=== PATIENT | female | born 1990 | race Caucasian/White ===

== ENCOUNTER 2020-06-17 15:00 | Observation (INO) | payer BC ==
--- NOTE | 2020-06-17 15:02 | ERPHSYRPT ---
- History of Present Illness Historian: patient Exam Limitations: no limitations Timing/Duration: yesterday Quality: sharpness, stabbing Abdominal Pain Onset Location: periumbilical (Right side) Pain Radiation: no radiation Severity of Pain-Max: moderate Severity of Pain-Current: mild (Mild to moderate) Modifying Factors: Improves With: vomiting Associated Symptoms: nausea, vomiting Previous symptoms: no prior history Hx Tetanus, Diphtheria Vaccination/Date Given: Yes Hx Influenza Vaccination/Date Given: No Hx Pneumococcal Vaccination/Date Given: No <NITIN YANES - Last Filed: 06/17/20 16:55> <YEFRI RAO - Last Filed: 06/17/20 18:29> - History of Present Illness Time Seen by Provider: 06/17/20 15:01 Physician History: This is a 30-year-old white female who has had left ovarian procedure in the past but no other abdominal surgeries and presents with vomiting times several episodes yesterday followed by right of midline periumbilical abdominal pain that has worsened since yesterday. Patient has not vomited today. However she has nausea. Patient does have a history of endometriosis as well. Patient denies chest pain and she denies shortness of breath. She has not had any fevers. She does not have flank pain. She has had no dysuria or hematuria. (NITIN YANES) Allergies/Adverse Reactions: guaifenesin Allergy (Mild, Verified 06/17/20 15:18) Hives Penicillins Allergy (Mild, Verified 06/17/20 15:18) Hives Home Medications: No Reportable Medications [No Reported Medications] 06/17/20 [History] Travel Risk - International Travel Have you traveled outside of the country in past 3 weeks: No - Coronavirus Screening Are you exhibiting any of the following symptoms?: No Close contact with a COVID-19 positive Pt in past 14-21 Days: No - Vaccine Status Have you recieved a Covid-19 vaccination: No <NITIN YANES - Last Filed: 06/17/20 16:55> - Review of Systems Constitutional: No Symptoms Eyes: No Symptoms Ears, Nose, & Throat: No Symptoms Respiratory: No Symptoms Cardiac: No Symptoms Abdominal/Gastrointestinal: Abdominal Pain, Nausea, Vomiting Genitourinary Symptoms: No Symptoms Musculoskeletal: No Symptoms Skin: No Symptoms Neurological: No Symptoms Psychological: No Symptoms Endocrine: No Symptoms Hematologic/Lymphatic: No Symptoms <NITIN YANES - Last Filed: 06/17/20 16:55> - Past Medical History Pertinent Past Medical History: No Neurological History: No Pertinent History ENT History: No Pertinent History Cardiac History: Other Respiratory History: No Pertinent History Endocrine Medical History: No Pertinent History Musculoskeletal History: No Pertinent History GI Medical History: No Pertinent History History: No Pertinent History Psycho-Social History: No Pertinent History Female Reproductive Disorders: No Pertinent History Other Medical History: david valve prolapse - Past Surgical History Past Surgical History: No Neuro Surgical History: No Pertinent History Cardiac: No Pertinent History Respiratory: No Pertinent History Gastrointestinal: No Pertinent History Genitourinary: No Pertinent History Musculoskeletal: No Pertinent History Female Surgical History: Other - Social History Smoking Status: Current some day smoker How long have you smoked: 5 Exposure to second hand smoke: Yes Drug Use: none Patient Lives Alone: No <NITIN YANES - Last Filed: 06/17/20 16:55> - Physical Exam General Appearance: no apparent distress, alert, anxiety Eye Exam: PERRL/EOMI, eyes nml inspection Ears, Nose, Throat Exam: normal ENT inspection, moist mucous membranes Neck Exam: normal inspection, non-tender, supple, full range of motion Respiratory Exam: normal breath sounds, lungs clear, airway intact, No chest tenderness, No respiratory distress Cardiovascular Exam: regular rate/rhythm, normal heart sounds, normal peripheral pulses Gastrointestinal/Abdomen Exam: soft, normal bowel sounds, tenderness (Right of umbilicus), guarding (Plus minus), No rebound Pelvic Exam: not done Rectal Exam: not done Back Exam: normal inspection, normal range of motion, No CVA tenderness, No vertebral tenderness Extremity Exam: normal inspection, normal range of motion, pelvis stable Neurologic Exam: alert, oriented x 3, cooperative, makeup sales consultant II-XII nml as tested, normal mood/affect, nml cerebellar function, nml station & gait, sensation nml Skin Exam: normal color, warm, dry Lymphatic Exam: No adenopathy SpO2 Interpretation: normal O2 Delivery: Room Air <NITIN YANES - Last Filed: 06/17/20 16:55> - Nursing Vital Signs Nursing Vital Signs: Initial Vital Signs Temperature 98.1 F 06/17/20 15:06 Pulse Rate 104 H 06/17/20 15:06 Blood Pressure 125/84 06/17/20 15:06 O2 Sat by Pulse Oximetry 98 06/17/20 15:06 Pain Scale Pain Intensity 6 - Course Nursing assessment & vital signs reviewed: Yes <NITIN YANES - Last Filed: 06/17/20 16:55> Ordered Tests: Active Orders 24 hr Category Date Time Status IV Insertion STAT Care 06/17/20 15:53 Active ABDOMEN AND PELVIS W/0 CONTRAS [CT] Stat Exams 06/17/20 15:53 Taken AMYLASE Stat Lab 06/17/20 16:00 Completed CBC W DIFF Stat Lab 06/17/20 16:00 Completed CMP Stat Lab 06/17/20 16:00 Completed HCG,QUALITATIVE URINE Stat Lab 06/17/20 16:00 Completed LIPASE Stat Lab 06/17/20 16:00 Completed Lactic Acid Stat Lab 06/17/20 15:53 Completed UA W/RFX UR CULTURE Stat Lab 06/17/20 16:00 Completed Medication Summary Discontinued Medications Generic Name Dose Route Start Last Admin Trade Name Freq PRN Reason Stop Dose Admin Famotidine 20 mg 06/17/20 15:53 06/17/20 16:24 Pepcid 20 Mg Vial IV 06/17/20 15:54 20 mg STAT ONE Administration Famotidine Confirm 06/17/20 16:15 Pepcid 20 Mg Vial Administered 06/17/20 16:16 Dose 20 mg IV .STK-MED ONE Hydromorphone HCl 1 mg 06/17/20 15:53 06/17/20 16:26 Hydromorphone 1 Mg/Ml Injection IV 06/17/20 15:54 1 mg STAT ONE Administration Hydromorphone HCl Confirm 06/17/20 16:16 Hydromorphone 1 Mg/Ml Injection Administered 06/17/20 16:17 Dose 1 mg .ROUTE .STK-MED ONE Sodium Chloride 1,000 mls @ 999 mls/hr 06/17/20 15:53 06/17/20 17:42 Sodium Chloride 0.9% 1000 Ml IV 06/17/20 16:53 Infused .Q1H1M STA Infusion Sodium Chloride Confirm 06/17/20 16:16 Sodium Chloride 0.9% 1000 Ml Administered 06/17/20 16:17 Dose 1,000 mls @ ud .ROUTE .STK-MED ONE Ondansetron HCl 4 mg 06/17/20 15:53 06/17/20 16:20 Zofran 4 Mg/2 Ml Vial IV 06/17/20 15:54 4 mg STAT ONE Administration Ondansetron HCl Confirm 06/17/20 16:15 Zofran 4 Mg/2 Ml Vial Administered 06/17/20 16:16 Dose 4 mg .ROUTE .STK-MED ONE Lab/Rad Data: Laboratory Result Diagrams 06/17/20 16:00 06/17/20 16:00 Laboratory Results 06/17/20 06/17/20 06/17/20 Range/Units 16:00 16:00 16:00 WBC 11.6 H (4.0-10.5) K/mm3 RBC 4.91 (4.1-5.4) M/mm3 Hgb 14.4 (12.0-16.0) gm/dl Hct 42.9 (35-47) % MCV 87.4 (78-100) fl MCH 29.3 (26-32) pg MCHC 33.6 (32-36) g/dl RDW 13.3 (11.5-14.0) % Plt Count 274 (150-450) K/mm3 MPV 10.7 (7.5-11.0) fl Gran % 67.8 H (36.0-66.0) % Eos # (Auto) 0.07 (0-0.5) Absolute Lymphs (auto) 2.46 (1.0-4.6) Absolute Monos (auto) 1.21 (0.0-1.3) Lymphocytes % 21.1 L (24.0-44.0) % Monocytes % 10.4 (0.0-12.0) % Eosinophils % 0.6 (0.00-5.0) % Basophils % 0.1 (0.0-0.4) % Absolute Granulocytes 7.89 H (1.4-6.9) Basophils # 0.01 (0-0.4) Sodium 138 (137-145) mmol/L Potassium 3.6 (3.5-5.1) mmol/L Chloride 101 (98-107) mmol/L Carbon Dioxide 26 (22-30) mmol/L Anion Gap 14.9 (5-15) MEQ/L BUN 11 (7-17) mg/dL Creatinine 0.81 (0.52-1.04) mg/dL Estimated GFR > 60.0 ML/MIN Glucose 103 (74-106) mg/dL Lactic Acid (0.4-2.0) Calcium 9.3 (8.4-10.2) mg/dL Total Bilirubin 0.70 (0.2-1.3) mg/dL AST 20 (14-36) U/L ALT 17 (0-35) U/L Alkaline Phosphatase 72 (38-126) U/L Serum Total Protein 7.6 (6.3-8.2) g/dL Albumin 4.6 (3.5-5.0) g/dL Amylase 82 (30-110) U/L Lipase 48 (23-300) U/L Urine Color (YELLOW) Urine Appearance (CLEAR) Urine pH (5-6) Ur Specific [place] (1.005-1.025) Urine Protein (Negative) Urine Ketones (NEGATIVE) Urine Blood (0-5) Bharat/ul Urine Nitrite (NEGATIVE) Urine Bilirubin (NEGATIVE) Urine Urobilinogen (0-1) mg/dL Ur Leukocyte Esterase (NEGATIVE) Urine WBC (Auto) (0-5) /HPF Urine RBC (Auto) (0-2) /HPF U Epithel Cells (Auto) (FEW) /HPF Urine Bacteria (Auto) (NEGATIVE) /HPF Urine Mucus (Auto) (NEGATIVE) /HPF Urine Culture Reflexed (NO) Urine Glucose (NEGATIVE) mg/dL Urine HCG, Qual NEGATIVE (Negative) 06/17/20 06/17/20 Range/Units 16:00 15:53 WBC (4.0-10.5) K/mm3 RBC (4.1-5.4) M/mm3 Hgb (12.0-16.0) gm/dl Hct (35-47) % MCV (78-100) fl MCH (26-32) pg MCHC (32-36) g/dl RDW (11.5-14.0) % Plt Count (150-450) K/mm3 MPV (7.5-11.0) fl Gran % (36.0-66.0) % Eos # (Auto) (0-0.5) Absolute Lymphs (auto) (1.0-4.6) Absolute Monos (auto) (0.0-1.3) Lymphocytes % (24.0-44.0) % Monocytes % (0.0-12.0) % Eosinophils % (0.00-5.0) % Basophils % (0.0-0.4) % Absolute Granulocytes (1.4-6.9) Basophils # (0-0.4) Sodium (137-145) mmol/L Potassium (3.5-5.1) mmol/L Chloride (98-107) mmol/L Carbon Dioxide (22-30) mmol/L Anion Gap (5-15) MEQ/L BUN (7-17) mg/dL Creatinine (0.52-1.04) mg/dL Estimated GFR ML/MIN Glucose (74-106) mg/dL Lactic Acid 1.6 (0.4-2.0) Calcium (8.4-10.2) mg/dL Total Bilirubin (0.2-1.3) mg/dL AST (14-36) U/L ALT (0-35) U/L Alkaline Phosphatase (38-126) U/L Serum Total Protein (6.3-8.2) g/dL Albumin (3.5-5.0) g/dL Amylase (30-110) U/L Lipase (23-300) U/L Urine Color YELLOW (YELLOW) Urine Appearance CLEAR (CLEAR) Urine pH 6.0 (5-6) Ur Specific [place] 1.010 (1.005-1.025) Urine Protein NEGATIVE (Negative) Urine Ketones NEGATIVE (NEGATIVE) Urine Blood SMALL (0-5) Bharat/ul Urine Nitrite NEGATIVE (NEGATIVE) Urine Bilirubin NEGATIVE (NEGATIVE) Urine Urobilinogen NEGATIVE (0-1) mg/dL Ur Leukocyte Esterase NEGATIVE (NEGATIVE) Urine WBC (Auto) 0-2 (0-5) /HPF Urine RBC (Auto) NONE (0-2) /HPF U Epithel Cells (Auto) RARE (FEW) /HPF Urine Bacteria (Auto) RARE (NEGATIVE) /HPF Urine Mucus (Auto) SLIGHT (NEGATIVE) /HPF Urine Culture Reflexed NO (NO) Urine Glucose NEGATIVE (NEGATIVE) mg/dL Urine HCG, Qual (Negative) - Progress Progress: improved, pain not gone completely, re-examined Counseled pt/family regarding: lab results, diagnosis, need for follow-up, rad results <NITIN YANES - Last Filed: 06/17/20 16:55> <YEFRI RAO - Last Filed: 06/17/20 18:29> - Progress Progress Note: 06/17/20 16:55 I transferred care to Dr. Daryl Rao. He accepts the patient and will provide final disposition. I reviewed the patient history condition and pending laboratory and radiographic studies (NITIN YANES) 06/17/20 18:26 pt taken over at change of shift from Dr. Yanes after intro and discussion of pending labs. = RLQ now tender , no complaint of pelvic tenderness at this time or discharge. CT read as concerning for early appe - discussed with pt who wishes to stay - Dr larson and Dr. Pérez consulted and he will come in for pt to eval for appe - will admit with AB azactam since pen allergic by hx (YEFRI RAO) - Departure Departure Disposition: Home Critical Care Time: No <NITIN YANES - Last Filed: 06/17/20 16:55> - Departure Departure Disposition: In-patient Admission <YEFRI RAO - Last Filed: 06/17/20 18:29> - Departure Clinical Impression: Abdominal pain, early appendicitis suspecte Condition: Stable Referrals: DAVID GUNN [Primary Care Provider] -
[2020-06-17] MEDS ORDERED: Pepcid 20 MG VIAL IV ONE ×3 (15:53→19:22)
[2020-06-17] MEDS ORDERED: Hydromorphone 1 mg/ml Injection IV ONE (15:53)
[2020-06-17] MEDS ORDERED: Zofran 4 MG/2 ML VIAL IV ONE (15:53)
[2020-06-17] MEDS ORDERED: Sodium Chloride 0.9% 1000 ML 1,000 ML IV STA (15:53)
[2020-06-17 16:00] LABS: Absolute Neutrophil Ct (ANC) 7.89 (1.4-6.9); BASOPHIL % 0.1 % (0.0-0.4); Basophil (Absolute #) 0.01 (0-0.4); Eosinophil % 0.6 % (0.00-5.0); Eosinophil (Absolute #) 0.07 (0-0.5); Hematocrit 42.9 % (35-47); Hemoglobin 14.4 gm/dl (12.0-16.0); Lymphocyte (Absolute #) 2.46 (1.0-4.6); Lymphocytes % 21.1 % (24.0-44.0); Mean Cell Volume 87.4 fl (78-100); Mean Corpuscular Hemoglobin 29.3 pg (26-32); Mean Corpuscular Hgb Concent. 33.6 g/dl (32-36); Mean Platelet Volume 10.7 fl (7.5-11.0); Monocyte (Absolute #) 1.21 (0.0-1.3); Monocytes % 10.4 % (0.0-12.0); Neutrophil % 67.8 % (36.0-66.0); Platelet Count 274 K/mm3 (150-450); Red Blood Count 4.91 M/mm3 (4.1-5.4); Red Cell Distribution Width 13.3 % (11.5-14.0); White Blood Count 11.6 K/mm3 (4.0-10.5)
[2020-06-17 16:04] LABS: Appearance CLEAR (CLEAR); Bacteria RARE /HPF (NEGATIVE); Bilirubin NEGATIVE (NEGATIVE); Blood SMALL Ery/ul (0-5); Epithelial Cells RARE /HPF (FEW); Glucose NEGATIVE (NEGATIVE); Ketones NEGATIVE (NEGATIVE); Leukocyte Esterase NEGATIVE (NEGATIVE); Mucus SLIGHT /HPF (NEGATIVE); Nitrite NEGATIVE (NEGATIVE); Protein,Urine Dip NEGATIVE (Negative); Urobilinogen NEGATIVE mg/dL (0-1); WBC 0-2 /HPF (0-5)
[2020-06-17 16:06] LABS: ALBUMIN 4.6 g/dL (3.5-5.0); ALKALINE PHOSPHATASE 72 U/L (38-126); AMYLASE 82 U/L (30-110); ANION GAP 14.9 MEQ/L (5-15); BLOOD UREA NITROGEN 11 mg/dL (7-17); CHLORIDE 101 mmol/L (98-107); Calcium 9.3 mg/dL (8.4-10.2); Carbon Dioxide 26 mmol/L (22-30); Creatinine 1 0.81 mg/dL (0.52-1.04); EST GLOMERULAR FILTRATION RATE > 60.0 ML/MIN; Glucose 103 mg/dL (74-106); LIPASE 48 U/L (23-300); Potassium 3.6 mmol/L (3.5-5.1); SGOT/AST 20 U/L (14-36); SGPT/ALT 17 U/L (0-35); SODIUM 138 mmol/L (137-145); Total Protein 7.6 g/dL (6.3-8.2)
[2020-06-17] MEDS ORDERED: Zofran 4 MG/2 ML VIAL ONE (16:15)
[2020-06-17] MEDS ORDERED: Sodium Chloride 0.9% 1000 ML 1,000 ML ONE (16:16)
[2020-06-17] MEDS ORDERED: Hydromorphone 1 mg/ml Injection ONE (16:16)
[2020-06-17] MEDS ORDERED: Lactated Ringers 1,000 ML IV ONE ×2 (19:01→19:08)
[2020-06-17] MEDS ORDERED: Sensorcaine 0.25% 10 ML ONE (19:08)
[2020-06-17 19:20] LABS: INFLUENZA A NEGATIVE (NEGATIVE); INFLUENZA B NEGATIVE (NEGATIVE); RESPIRATORY SYNCTIAL VIRUS NEGATIVE (Negative)
[2020-06-17] MEDS ORDERED: CLINDAMYCIN-D5W 900 MG/50 ML*** 900 MG/50 ML BAG IV ONE (19:21)
[2020-06-17] MEDS ORDERED: Levofloxacin 500MG/100ML D5W 500 MG/100 ML BAG IV ONE (19:21)
[2020-06-17] MEDS ORDERED: Levofloxacin 500MG/100ML D5W 500 MG/100 ML BAG IV STA (19:22)
[2020-06-17] MEDS ORDERED: CLINDAMYCIN-D5W 900 MG/50 ML*** 900 MG/50 ML BAG IV STA (19:22)
[2020-06-17] MEDS ORDERED: SUBLIMAZE 250 MCG/5 ML ONE (19:47)
[2020-06-17] MEDS ORDERED: Quelicin Fliptop 200 MG/10 ML ONE (19:47)
[2020-06-17] MEDS ORDERED: Versed 2 MG/2 ML Injection ONE (19:47)
[2020-06-17] MEDS ORDERED: DIPRIVAN 200 MG/20 ML IV ONE (19:47)
[2020-06-17] MEDS ORDERED: Zemuron 100 MG/10 ML ONE (19:47)
[2020-06-17] MEDS ORDERED: Xylocaine-Mpf 2% 5 Ml Vial ONE (19:48)
[2020-06-17] MEDS ORDERED: BRIDION 200MG/2ML IV ONE (20:36)
--- NOTE | 2020-06-17 20:40 | XRAY ---
Indication: Abdomen pain, vomiting, and diarrhea. Multiple contiguous axial images obtained through the abdomen and pelvis without contrast. Comparison: None. Lung bases are clear. Heart is not enlarged. Stomach and bowel loops appear nonobstructed. Appendix is in the right pelvis with the distal appendix distended up to 16 mm concerning for appendicitis. No free fluid/air. Colon demonstrates radiopacities throughout presumed ingested medication/bismuth. Remaining liver, gallbladder, pancreas, spleen, adrenal glands, kidneys, ureters, bladder, uterus, and aorta appear unremarkable for noncontrast exam. Osseous structures intact. Impression: CT findings favoring acute appendicitis. No complications. Remaining CT abdomen/pelvis without contrast exam is negative. Comment: Preliminary interpretation was made by [facility]. No critical discrepancy.
[2020-06-17] MEDS ORDERED: Sodium Chloride 0.9% 1000 ML 1,000 ML IV SCH (21:40)
[2020-06-17] MEDS ORDERED: Hydromorphone 1 mg/ml Injection IV PRN ×2 (21:40→21:52)
[2020-06-17] MEDS ORDERED: VANCOMYCIN 1 GRAM/200 ML BAG 1 GM/200 ML PIGGYBACK IV SCH (21:40)
[2020-06-17] MEDS ORDERED: Zofran 4 MG/2 ML VIAL IV PRN (21:40)
[2020-06-17 21:49] LABS: Appearance CLEAR (CLEAR); Bilirubin NEGATIVE (NEGATIVE); Blood NEGATIVE Ery/ul (0-5); Glucose NEGATIVE (NEGATIVE); Ketones NEGATIVE (NEGATIVE); Leukocyte Esterase NEGATIVE (NEGATIVE); Mucus SLIGHT /HPF (NEGATIVE); Nitrite NEGATIVE (NEGATIVE); Protein,Urine Dip NEGATIVE (Negative); Specific Gravity 1.015 (1.005-1.025); Urobilinogen NEGATIVE mg/dL (0-1)
[2020-06-17 21:55] LABS: Bacteria NONE SEEN /HPF (NEGATIVE)
[2020-06-17] MEDS ORDERED: Lactated Ringers 1,000 ML IV SCH (22:00)
[2020-06-17] MEDS ORDERED: AZACTAM 1 GM ONE (22:34)
[2020-06-17] MEDS ORDERED: D5w 100ML Mini Bag 100 ML 100 ML IV ONE (22:34)
[2020-06-17] MEDS: Azactam 1 GM/100 ML D5W 1 GM/100 ML IVPB IV SCH (22:38)
[2020-06-18] MEDS: FLAGYL 500 MG IVPB 500 MG/100 ML BAG IV SCH ×2 (00:02→05:09)
[2020-06-18] MEDS: Azactam 1 GM/100 ML D5W 1 GM/100 ML IVPB IV SCH (05:09)
[2020-06-18 06:09] LABS: Absolute Neutrophil Ct (ANC) 5.11 (1.4-6.9); BASOPHIL % 0.1 % (0.0-0.4); Basophil (Absolute #) 0.01 (0-0.4); Eosinophil % 0.1 % (0.00-5.0); Eosinophil (Absolute #) 0.01 (0-0.5); Hematocrit 36.3 % (35-47); Hemoglobin 11.7 gm/dl (12.0-16.0); Lymphocyte (Absolute #) 1.59 (1.0-4.6); Lymphocytes % 21.5 % (24.0-44.0); Mean Cell Volume 89.9 fl (78-100); Mean Corpuscular Hgb Concent. 32.2 g/dl (32-36); Mean Platelet Volume 10.5 fl (7.5-11.0); Monocyte (Absolute #) 0.69 (0.0-1.3); Monocytes % 9.3 % (0.0-12.0); Platelet Count 213 K/mm3 (150-450); Red Blood Count 4.04 M/mm3 (4.1-5.4); Red Cell Distribution Width 13.1 % (11.5-14.0); White Blood Count 7.4 K/mm3 (4.0-10.5)
[2020-06-18 06:21] LABS: ALBUMIN 3.4 g/dL (3.5-5.0); ALKALINE PHOSPHATASE 56 U/L (38-126); ANION GAP 12.8 MEQ/L (5-15); BLOOD UREA NITROGEN 8 mg/dL (7-17); CHLORIDE 103 mmol/L (98-107); Calcium 8.4 mg/dL (8.4-10.2); Carbon Dioxide 24 mmol/L (22-30); Creatinine 1 0.74 mg/dL (0.52-1.04); EST GLOMERULAR FILTRATION RATE > 60.0 ML/MIN; Glucose 100 mg/dL (74-106); SGOT/AST 15 U/L (14-36); SGPT/ALT 12 U/L (0-35); SODIUM 136 mmol/L (137-145); Total Protein 5.9 g/dL (6.3-8.2)
[2020-06-18] MEDS ORDERED: TYLENOL 325 MG PO PRN (08:45)
[2020-06-18] MEDS ORDERED: MEFOXIN 2 GM PREMIX** 2 GM/50 ML ML IV SCH (10:00)
[2020-06-18] MEDS ORDERED: NORCO 5/325 MG PO PRN ×2 (10:50→21:49)
[2020-06-18 13:08] VITALS: BP 123/68; PULSE 69; O2SAT 97
--- NOTE | 2020-06-19 13:04 | HP ---
CHIEF COMPLAINT: Right lower quadrant pain. HISTORY OF PRESENT ILLNESS: This patient presents with abdominal pain starting yesterday and was initially periumbilical and localized to the right lower quadrant and suprapubic area. She did have nausea and vomiting yesterday. The car ride was very painful coming here. She denies any chest pain or shortness of breath. She denies any prior episodes. PAST MEDICAL HISTORY: None. PAST SURGICAL HISTORY: Ovarian cyst laparoscopic removal. MEDICATIONS: CBD oil. ALLERGIES: PENICILLIN (MOUTH ULCERS). GUAFENESIN. LATEX. SOCIAL HISTORY: No tobacco. FAMILY HISTORY: Noncontributory. PHYSICAL EXAMINATION: GENERAL: No acute distress. HEENT: Sclera nonicteric. Extraocular movements intact. NECK: Supple. No JVD. CHEST: Nonlabored breathing. ABDOMEN: Soft, nondistended, focally tender in the right lower quadrant suprapubic area. No diffuse peritonitis. EXTREMITIES: No peripheral edema. NEURO: Awake, alert, oriented. PSYCH: Appropriate mood and affect. LAB DATA AND TESTS: CT scan consistent with early acute appendicitis. Laboratory studies are unremarkable other than mildly elevated white blood cell count. ASSESSMENT AND PLAN: Acute appendicitis. Plan for laparoscopic possible open appendectomy. Risks and benefits of the surgery discussed in depth with the patient and she would like to proceed.
--- NOTE | 2020-06-19 13:25 | OP ---
SURGERY DATE/TIME: 06/17/20201999 PREOPERATIVE DIAGNOSIS: Acute appendicitis. POSTOPERATIVE DIAGNOSIS: Acute appendicitis, uncomplicated. PROCEDURE: Laparoscopic appendectomy. SURGEON: Mandeep Pérez M.D. ANESTHESIA: General. ESTIMATED BLOOD LOSS: Less than 10 cc. COMPLICATIONS: None. SPECIMEN: Appendix. FINDINGS: Acute appendicitis with fairly dilated tip of the appendix. The same is most likely acute appendicitis however it certainly could be a lipocele of the appendix or other pathology of the appendix. INDICATION: This patient presents with acute onset of abdominal pain. CT scan concerning for early appendicitis. After discussing the risks and benefits of appendectomy the patient wished to proceed. DESCRIPTION OF PROCEDURE: The patient was brought to the operating room, placed supine on operating table, placed under general anesthesia. The abdomen was prepped and draped in sterile fashion with left arm tucked. Veress needle inserted left upper quadrant. Pneumoperitoneum obtained. A 5 mm optical trocar was inserted under direct visualization and the abdomen was entered. Area on entry was inspected. There did not appear to be any inadvertent injury. Additional 5 mm and 12 mm trocar placed along the left side with the 12 mm on the lower which went through a prior laparoscopy scar. The patient was positioned. The appendix was pulled out of the pelvis. The tip was very bulbous and it is probably early appendicitis with a dilated tip from the appendicitis but it certainly could be appendiceal mucinous neoplasm or other appendiceal pathology. Given that very careful handling of the appendix was performed and the bulbous portion was not handled at all. The mesoappendix was lifted up. A window was created between the cecum and the base of the appendix, the cecum and mesoappendix. The mesoappendix transected with round LigaSure. The dilator was quite a ways from the base of the appendix. A large amount of mesoappendix was left with the specimen to include the periappendiceal lymph nodes in case this is a mucinous neoplasm and a few millimeter sliver of the cecum was taken with 45 White [employer] HARLEY stapler to transect the appendix from the cecum getting excellent gross margins if there is significant pathology other than appendicitis. There is no sign of other pathology in the abdomen. The appendix was carefully removed with a bag with significant spreading acquired before gently pulling it out. The trocar site was closed with 0 Vicryl suture with a suture passer under direct visualization x2. The remaining trocars were removed under direct visualization. Abdomen is deflated. Wounds closed with 4-0 Monocryl suture. Steri-Strips and dressings were applied. The patient was recovered and taken to PACU in stable condition.
== END 2020-06-18 14:30 | disposition home or self-care (01) ==
LOC: ED 15:00 → MED SURG 21:30
PROVIDERS: ADMIT Surgery; ATTEND Surgery
DX: K35.80 Unspecified acute appendicitis (principal)
CPT/HCPCS: 0241U; 36000; 36415; 44970; 74176; 80053; 81001; 82150; 83605; 83690; 84703; 85025; 87086; 93268; 94762; 96360; 96361; 96365; 96368; 96374; 96375; 99284; G0378; 99140; J0330; J0694; J1170; J1956; J2250; J2405; J2704; J3010; A9270-GY; J3370